=== PATIENT | female | born 1970 | race Caucasian/White ===

== ENCOUNTER → 2016-12-22 | Outpatient (CLI) | payer BC ==
--- NOTE | 2016-12-22 16:20 | MY ---
EXAMINATION: Right digital diagnostic mammogram and targeted ultrasound HISTORY: Follow-up. Comparison is made to previous studies dated 07/13/2016 . FINDINGS: Again noted is a round mass within the inner right breast measuring approximately 6 mm ma mmographically. This is well circumscribed. Sonographic evaluation of this region demonstrates a mildly complex, nonshadowing, hypoechoic nodule measuring 5 mm. This is unchanged in size and appearance compared to the previous ultrasound. This likely represents a complex cyst versus an oil cyst. There is also a 0.9 cm cyst at the 9 o'clock po sition of the right breast. IMPRESSION: BI-RADS category II - Benign finding. Continued screening according to ACR-ACS guidelin es suggested. THE FALSE-NEGATIVE RATE OF MAMMOGRAM IS APPROXIMATELY 10%. MANAGEMENT OF A PALPABLE ABNORMALITY MUST BE BASED UPON CLINICAL GROUNDS. SENSITIVITY FOR DETECTION OF ABNORMALITIES IN DENSE BREASTS IS LOW. NOTE: A letter will be sent to the patient regarding findings. [facility] -- [place]I [phone] - FAX [phone]
== END ==
LOC: MW.MAM 10:29
PROVIDERS: ATTEND Surgery
DX: N63 Unspecified lump in breast (principal)
CPT/HCPCS: 76642; G0206

== ENCOUNTER → 2017-01-14 | Outpatient (CLI) | payer BC ==
--- NOTE | 2017-01-14 13:53 | MY ---
EXAMINATION: Ultrasound guided right breast cysts aspiration HISTORY: Several cysts, painful. COMPARISON: 12/22/2016 TECHNIQUE: The procedure, risks, and benefits were discussed with the patient. Informed consent was obtained. Both cysts at the 5:00 and 10:00 positions were identified. The overlying area was sterile ly prepped and draped. 1% lidocaine was administered for local anesthesia. Using ultrasound guidance the cyst at the 10:00 position was aspirated using a 22-gauge needle and contained a greenish liqui d. The cyst completely resolved. The small cyst at the 5:00 position was aspirated using an 18-gauge needle and contained a thick ovale substance. Given the appearance of the fluid these were discarde d. No immediate complications. IMPRESSION: Successful ultrasound guidance of 2 breast cysts.
== END ==
LOC: MW.US 09:56
PROVIDERS: ATTEND Surgery
DX: N63 Unspecified lump in breast (principal)
CPT/HCPCS: 19000-RT